=== PATIENT | female | born 1965 | race Caucasian/White ===

== ENCOUNTER 2020-07-02 17:22 | Observation (INO) ==
--- NOTE | 2020-07-02 18:11 | General Surgery Consult Note ---
HPI Data of Consult Patient: new to practice Consult date: 07/02/20 Consult Narrative Chief complaint: Right ureteral stone stone ureteral stone Reason for consult: Associated with fever chills over the last week and found to have UTI History of present illness: ureteral stone right associated with fever chills over the last week and now found to have pyelonephritis on evaluation at [facility] emergency room Patient is had review of CT and now sent for emergent stone evaluation and treatment with urology which is not available at [facility] facility cc:: CC: Tomy Greer MD Genitourinary Genitourinary: Present other Additional comments: No past history of stones although patient has had intermittent symptoms of back pain which have been unable to be identified and potentially have been small stone passages. Patient has no family history of stones to her knowledge. Physical Examination Additional Findings Additional exam: Patient noted to have acute distress secondary to right flank pain and has some mild servers. HEENT within normal limits Right CVA tenderness Abdominal mass is benign and nonobese not examined Results Labs Labs: All other labs normal. A/P Narrative A/P Narrative: Patient's had discussion of options after review of CT imaging and lab results from [facility]. Patient's had suggested to proceed with cystoscopy and right ureteral stone pushback with potential removal pending stone status at time of OR procedure Patient has been understand risks and benefits agrees with plan as outlined and will continue antibiotic coverage Consent has been signed Time Spent With Patient Time: Total time spent is greater than 50% in coordination of care (as documented) at patient's floor/unit and/or counseling patient:
[2020-07-02] MEDS ORDERED: LIDOCAINE HCL/PF 100 MG/5 ML SYRINGE IV ONE (18:31)
[2020-07-02] MEDS ORDERED: ONDANSETRON 4 MG/2 ML VIAL ONE (18:31)
[2020-07-02] MEDS ORDERED: DEXAMETHASONE 10 MG/ML VIAL ONE (18:31)
[2020-07-02] MEDS ORDERED: fentaNYL 100 MCG/2 ML VIAL IV ONE (18:31)
[2020-07-02] MEDS ORDERED: PROPOFOL 200 MG/20 ML VIAL IV ONE (18:31)
[2020-07-02] MEDS ORDERED: MIDAZOLAM 5 MG/5 ML VIAL ONE (18:31)
[2020-07-02] MEDS ORDERED: ceFAZolin 1 GM VIAL IV ONE (18:42)
[2020-07-02] MEDS ORDERED: ceFAZolin 2 GM in DEXTROSE 5% IN WATER 50 ML IV SCH (18:45)
[2020-07-02] MEDS ORDERED: ceFAZolin 1 GM VIAL ONE (18:48)
[2020-07-02] MEDS ORDERED: PROMETHAZINE 25 MG/ML VIAL IV PRN (18:53)
[2020-07-02] MEDS ORDERED: diphenhydrAMINE 50 MG/ML VIAL IV PRN (18:53)
[2020-07-02] MEDS ORDERED: ePHEDrine 50 MG/ML AMPUL IV PRN (18:53)
[2020-07-02] MEDS ORDERED: ATROPINE SULFATE 0.4 MG/ML VIAL IV PRN (18:53)
[2020-07-02] MEDS ORDERED: FLUMAZENIL 0.1 MG/ML ML IV PRN (18:53)
[2020-07-02] MEDS ORDERED: MEPERIDINE 25 MG/ML VIAL IV PRN (18:53)
[2020-07-02] MEDS ORDERED: fentaNYL 100 MCG/2 ML VIAL IV PRN (18:53)
[2020-07-02] MEDS ORDERED: ONDANSETRON 4 MG/2 ML VIAL IV PRN (18:53)
[2020-07-02] MEDS ORDERED: NALOXONE HCL 0.4 MG/ML VIAL IV PRN (18:53)
[2020-07-02] MEDS ORDERED: METOPROLOL TARTRATE 5 MG/5 ML VIAL IV PRN (18:53)
[2020-07-02] MEDS ORDERED: ACETAMINOPHEN 1,000 MG/100 ML BAG IV ONE ×2 (18:53→19:14)
[2020-07-02] MEDS ORDERED: METHOCARBAMOL 1,000 MG/10 ML VIAL IV PRN (18:53)
[2020-07-02] MEDS ORDERED: IPRATROPIUM/ALBUTEROL 3 ML AMPUL.NEB NEB PRN (18:53)
[2020-07-02] MEDS ORDERED: LACTATED RINGERS 1,000 ML IV SCH (19:00)
--- NOTE | 2020-07-02 19:07 | Operative Note ---
Operative Note Operative Note: Operation report Preop diagnosis: Right ureteral calculus with hydronephrosis and pyelonephritis Postop diagnosis: Same Procedure performed: Cystoscopy with catheterized urine culture with right ureteral stone pushback and stent placement utilizing fluoroscopy Surgeon: Dr. Ignacio Greer Anesthesia: General with RAMESH Vaughn Drains: 6 x 24 cm double-J stent no suture per urethra Complications none Specimens right catheterized urine culture and sensitivity Additional procedure: Fluoroscopy Description: after adequate induction of general anesthesia patient had prepping and draping in the dorsolithotomy position. Fluoroscopy was not able to identify stone seen on CT imaging has decided to proceed with procedure patient had bladder and entered in acute cystitis was noted with demonstration of significant cloudy urine which was sent via cystoscope for culture and sensitivity after which Ancef 2 g was given IV. Patient had flushing of the bladder to clear and no other anomalies were seen. Patient had edematous changes at the right and left bladder trigone and no other ureteral anomalies identified. Patient had cannulation of the right ureter with some difficulty utilizing the open-ended ureteral stent and 035 straight Glidewire. Patient had a cloudy reflux from the right ureter consistent with obstruction relief and a 6 x 24 cm double-J stent with no suture for urethra was passed with confirmation of position fluoroscopically and cystoscopically. Patient had bladder drained and was returned to the postanesthesia recovery area having tolerated procedure well. Patient will require subsequent secondary ureteroscopy and stone manipulation pending clinical response to renal decompression and antibiotic therapy.
[2020-07-02] MEDS ORDERED: HYDROcodone/APAP 5/325MG TABLET PO PRN (19:34)
[2020-07-02] MEDS: 0.45 % SODIUM CHLORIDE 1,000 ML IV SCH (19:50)
[2020-07-02] MEDS: ONDANSETRON 4 MG/2 ML VIAL IV PRN (20:51)
[2020-07-02] MEDS: 0.9 % SODIUM CHLORIDE 10 ML SYRINGE IV SCH (22:01)
[2020-07-03] MEDS: KETOROLAC 15 MG/ML VIAL IV PRN ×3 (06:33→21:53)
[2020-07-03] MEDS: ONDANSETRON 4 MG/2 ML VIAL IV PRN ×3 (06:33→21:50)
[2020-07-03] MEDS: 0.9 % SODIUM CHLORIDE 10 ML SYRINGE IV SCH ×3 (06:58→20:29)
[2020-07-03] MEDS: 0.45 % SODIUM CHLORIDE 1,000 ML IV SCH ×3 (07:18→19:08)
[2020-07-03 07:50] LABS: Basophils # (Auto) 0.02 K/mcL (0.00-0.20); Basophils % (Auto) 0.3 % (0.0-2.0); Eosinophils # (Auto) 0 K/mcL (0.00-0.70); Eosinophils % (Auto) 0 % (0.0-7.0); Hematocrit 29.6 % (36.0-48.0); Hemoglobin 9.1 g/dL (12.0-15.0); Lymphocytes % (Auto) 8.7 % (15.0-49.0); Mean Cell Volume 85.5 fL (80.0-100.0); Mean Corpuscular HGB Conc 30.7 g/dL (31.0-36.0); Mean Platelet Volume 11.4 fL (7.4-10.4); Monocytes # (Auto) 0.39 K/mcL (0.10-0.90); Monocytes % (Auto) 5.6 % (1.0-12.0); Neutrophils % (Auto) 85.4 % (38.0-78.0); Platelet Count 272 K/mcL (140-440); RBC 3.46 M/mcL (4.00-5.20); Red Cell Distribution Width 15.6 % (11.5-14.5); WBC 6.9 K/mcL (4.5-11.0)
[2020-07-03] MEDS ORDERED: AMOXICILLIN/POTASSIUM CLAV 875 MG TABLET PO SCH (08:00)
--- NOTE | 2020-07-03 10:13 | XRay Report ---
HISTORY: FINDINGS: IMPRESSION: 0.6 minutes of fluoroscopy time was used. Interpreted and Authenticated by: Ariel Luis 07/03/20
--- NOTE | 2020-07-03 10:30 | General Surgery Progress Note ---
SUBJECTIVE Subjective Patient information: Note initiated : 07/03/20 at 10:25 am Service Date, if different from initiated Date: [] Patient: Alessandra Hollingsworth 55 y/o F admitted on 07/02/20 for Pyelonephritis. Chief Complaint: [] Interval history: Patient still reports some fever and chills but pain significantly reduced Patient has had no blood in the urine and able to tolerate frequency and urgency well. Patient said no bowel movement yet Nausea continues requires intermittent Zofran administration Constitutional Vitals: Vital Signs Temp Pulse Resp BP Pulse Ox 97.5 F 57 L 16 99/61 100 07/03/20 07:08 07/03/20 07:08 07/03/20 07:08 07/03/20 07:08 07/03/20 07:08 Period Temp Pulse Resp BP Sys/Quiñones Pulse Ox Last 24 Hr 97.3 F-99.2 F 57-99 12-18 92-113/56-73 95-100 Intake and Output 07/02/20 07/03/20 07/03/20 21:59 05:59 13:59 Intake Total 1812 1960 120 Output Total 75 950 Balance 1737 1010 120 Weight 156 lb 14.4 oz Intake & Output: Intake & Output 07/02/20 07/03/20 07/03/20 21:59 05:59 13:59 Intake Total 1812 1960 120 Output Total 75 950 Balance 1737 1010 120 Weight 156 lb 14.4 oz Intake: IV 112 1000 Sodium Chloride 0.45% 1,000 ml 1000 @ 100 mls/hr IV .Q10H CELESTE Rx#: [id number] Lactated Ringers 1,000 ml @ 20 12 mls/hr IV .Q24H CELESTE Rx#: [id number] Oral 600 960 120 IV - Manual Only 1100 Output: Urine Catheter Amount 350 Void Amount 75 600 Other: Meal Breakfast Percent of Meal Consumed 100% Feeding Ability Independent Urine Appearance Mucous Threads Cloudy Cloudy Urine Color Blood Tinged Bright Yellow Bright Yellow Urine Odor Normal Additional findings Additional findings: Patient presently afebrile and vital signs stable Patient nontoxic and uncomfortable but no acute distress Mild right CVA tenderness but significantly improved Abdomen soft no masses exam not done A/P Narrative A/P Narrative: Assessment: Improvement but some persistent nausea fever and chills E. coli found on initial cultures from blood at [facility] and sensitivities pending CBC shows some anemia but white blood cell count returned to normal Plan: Change antibiotic to Rocephin parenterally pending sensitivity results and consider medical management with increase fluids and resuscitation as needed We will another 24 hours and reassess tomorrow hopefully having culture results available from urine and/or blood for more targeted antibiotic regimen Time Spent With Patient Time: Total time spent is greater than 50% in coordination of care (as documented) at patient's floor/unit and/or counseling patient:
[2020-07-03] MEDS: cefTRIAXone 2 GM in DEXTROSE 5% IN WATER 50 ML IV SCH (10:59)
[2020-07-03] MEDS ORDERED: PROMETHAZINE 25 MG/ML VIAL IV PRN (18:40)
[2020-07-04] MEDS: KETOROLAC 15 MG/ML VIAL IV PRN ×2 (04:23→10:46)
[2020-07-04] MEDS: 0.45 % SODIUM CHLORIDE 1,000 ML IV SCH (04:25)
[2020-07-04] MEDS: 0.9 % SODIUM CHLORIDE 10 ML SYRINGE IV SCH (04:43)
[2020-07-04 07:12] LABS: Basophils % (Auto) 0.3 % (0.0-2.0); Eosinophils % (Auto) 1.5 % (0.0-7.0); Hematocrit 29.6 % (36.0-48.0); Hemoglobin 9.1 g/dL (12.0-15.0); Lymphocytes % (Auto) 15.5 % (15.0-49.0); Mean Cell Volume 85.3 fL (80.0-100.0); Mean Corpuscular HGB Conc 30.7 g/dL (31.0-36.0); Mean Platelet Volume 11.5 fL (7.4-10.4); Monocytes % (Auto) 10.8 % (1.0-12.0); Neutrophils % (Auto) 71.9 % (38.0-78.0); Platelet Count 268 K/mcL (140-440); RBC 3.47 M/mcL (4.00-5.20); Red Cell Distribution Width 15.7 % (11.5-14.5); WBC 6.6 K/mcL (4.5-11.0)
[2020-07-04 07:13] LABS: Basophils # (Auto) 0.02 K/mcL (0.00-0.20); Lymphocytes # (Auto) 1.02 K/mcL (1.50-4.80); Monocytes # (Auto) 0.71 K/mcL (0.10-0.90)
[2020-07-04 07:42] LABS: ALT/SGPT 19 U/L (<40); AST/SGOT 36 U/L (<32); Albumin 2.8 gm/dL (3.2-5.2); Alkaline Phosphatase 77 U/L (39-117); Bilirubin,Total < 0.2 mg/dL (0.1-1.0); Blood Urea Nitrogen 16 mg/dL (6-20); Calcium 8.1 mg/dL (8.6-10.4); Carbon Dioxide 24 mmol/L (22-30); Chloride 103 mmol/L (96-108); Globulin 2.9 gm/dL (2.2-3.7); Glomerular Filtration Rate 56; Glucose 112 mg/dL (70-105)
[2020-07-04] MEDS: cefTRIAXone 2 GM in DEXTROSE 5% IN WATER 50 ML IV SCH (09:25)
--- NOTE | 2020-07-04 10:48 | Discharge Summary ---
Discharge Provider Provider Patient information: Note initiated : 07/04/20 at 10:47 am Service Date, if different from initiated Date: [] Patient: Alessandra Hollingsworth 55 y/o F admitted on 07/02/20 for Pyelonephritis. Patient admitted for surgery in transfer from [facility] emergency room for management of hydronephrosis sepsis and polynephritis with obstructive right ureteral stone. Patient underwent emergent cystoscopy with stone pushback and stent placement on 02 July and was started on parenteral antibiotics after adequate renal decompression. Patient had some persistent fevers and nausea and subsequently was found to have E. coli blood cultures from [facility] and switched to Rocephin with good results. Subsequent culture showed sensitivity to Levaquin and will start oral therapy as outpatient. Patient is on no home meds and has been instructed to continue on levaquin with high fluid intake and regular diet. Patient will have follow him approximately 5 days and will have scheduling for staged ureteroscopy and likely holmium laser lithotripsy once infection and edema is under control adequately. Date of admission: 07/02/20 17:41 Discharge date: 07/04/20 Discharge Meds Discharge Medications Home Medications levofloxacin 500 mg PO Q24H 14 Days #14 tab 07/04/20 [Rx Last Taken Unknown] COURSE Hospital Course Hospital course: Patient underwent surgical decompression and antibiotic regimen with good response Now afebrile and pain well controlled with culture results demonstrating sensitivity to Levaquin Discharge diagnosis: Right ureteral calculus with pyelonephritis and hyd ronephrosis status post Time Spent with Patient Time attestation: Total time spent providing and/or coordinating discharge services: EXAM Constitutional Vitals: Temp Pulse Resp BP Pulse Ox 98.4 F 75 16 107/73 99 07/04/20 07:47 07/04/20 07:47 07/04/20 07:47 07/04/20 07:47 07/04/20 07:47 Discharge Data Data Completed and Pending Labs on day of discharge: Labs from last 24 hours 07/04/20 07/04/20 05:21 05:21 WBC 6.6 RBC 3.47 L Hgb 9.1 L Hct 29.6 L MCV 85.3 MCH 26.2 MCHC 30.7 L RDW 15.7 H Plt Count 268 MPV 11.5 H Neut % (Auto) 71.9 Lymph % (Auto) 15.5 [place] % (Auto) 10.8 Eos % (Auto) 1.5 Baso % (Auto) 0.3 Lymph # (Auto) 1.02 L [place] # (Auto) 0.71 Eos # (Auto) 0.10 Baso # (Auto) 0.02 Absolute Neutrophils 4.75 Sodium 137 Potassium 3.7 Chloride 103 Carbon Dioxide 24 Anion Gap 10.0 BUN 16 Creatinine 1.1 GFR Calculation 56 Glucose 112 H Calcium 8.1 L Total Bilirubin < 0.2 AST 36 H ALT 19 Alkaline Phosphatase 77 Total Protein 5.7 L Albumin 2.8 L Globulin 2.9 Albumin/Globulin Ratio 1.0 Preliminary micro results at discharge 07/02/20 18:59 Urine Culture - Preliminary Urine - Cytoscopic Gram negative bacillus Discharge Plan Patient/Caregiver Discharge Instructions Activity: increase activity as tolerated Diet: Regular Diet Prescriptions: New levofloxacin 500 mg tablet 500 mg PO Q24H 14 Days Qty: 14 RF: 0 Follow Up Plan Follow up with: Tomy Greer MD [Physician] - (f/u in office in 5 days) Patient Disposition: Home, Self-Care Rehab Potential: Good Discharge Orders: Discharge Order (Routine); Ordered 07/04/20 Ordered By: Tomy Greer QUALITY VTE Deep Vein Thrombosis/Pulmonary Embolism Present on Admission: No
== END 2020-07-04 12:55 | disposition home or self-care (01) ==
LOC: MEDSUR → PREINTOOBSV 17:45 → MEDSUR 19:04
PROVIDERS: ADMIT Urology; ATTEND Urology